=== PATIENT | male | born 1960 | race Hispanic/Latino ===

== ENCOUNTER 2024-11-18 06:26 | Day surgery (SDC) | payer OTHER, SELFPAY | END 2024-11-18 10:49 | disposition home or self-care (01) | LOC: GI 06:26 | PROVIDERS: ATTENDING PHYSICIAN Internal Medicine Gastroenterology | DX: Z12.11 Encounter for screening for malignant neoplasm of colon (principal); K64.8 Other hemorrhoids; D12.5 Benign neoplasm of sigmoid colon | CPT/HCPCS: 45385; 88305 ==